=== PATIENT | female | born 1970 | race American Indian/Alaskan Native ===

== ENCOUNTER 2016-12-14 08:43 | Emergency (ER) | payer OTHER ==
[2016-12-14 08:54] VITALS: BP 155/99
--- NOTE | 2016-12-14 10:07 | Emergency Department Report ---
ED Upper Extremity Inj HPI - General Chief Complaint: Extremity Injury, Upper Stated Complaint: L SHOULDER PAIN Time Seen by Provider: 12/14/16 09:56 Source: patient Mode of arrival: Ambulatory Limitations: No Limitations - History of Present Illness Initial Comments: 46-year-old female presents with complaint of pain in her left arm and left upper shoulder status post mechanical fall at work this morning approximately 2 hours ago. Patient states she was sitting back in to chair chair slipped out from underneath her and fell onto her left shoulder. Patient complaining of pain in her left shoulder. Denies any loss of consciousness and no lacerations sustained. Patient denies any chest pain or abdominal pain. Patient fully ambulatory without assistance. Patient states that moving her left shoulder is very painful. pain 9/10. Accompanied by coworker. Patient awake alert and oriented 3 appears uncomfortable. MD Complaint: Injury to:: left, shoulder Onset/Timin -: hour(s) Other Extremity Injury: Wrist: Left, Elbow: Left, Shoulder: Left Severity scale (0 -10): 9 Improves With: immobilization Worsens With: movement of extremity Context: fall Associated Symptoms: denies other symptoms - Related Data Previous Rx's Medication Instructions Recorded Last Taken Type Docusate Sodium [Colace] 100 mg PO BID #60 capsule 11/02/14 Unknown Rx HYDROcodone/ACETAMINOPHEN [[place] 1 each PO Q6HR PRN #20 tablet 11/02/14 Unknown Rx 7.5-325 mg TAB] Ibuprofen [Motrin] 600 mg PO Q8H PRN #40 tablet 11/02/14 Unknown Rx Lidocaine Viscous 2% [Xylocaine 20 mg MM BID #50 ml 11/02/14 Unknown Rx Viscous 2%] Starch 51%(Nf) [Anusol] 1 each MS TID #20 supp.rect 11/02/14 Unknown Rx Cyclobenzaprine [Flexeril] 10 mg PO TID PRN #20 tablet 12/14/16 Unknown Rx Naproxen [Naprosyn TAB] 500 mg PO BID PRN #30 tablet 12/14/16 Unknown Rx Allergies Allergy/AdvReac Type Severity Reaction Status Date / Time Penicillins Allergy Hives Verified 08/01/13 11:51 ED Review of Systems ROS: Stated complaint: L SHOULDER PAIN Other details as noted in HPI Constitutional: denies: chills, fever Eyes: denies: eye pain, eye discharge, vision change ENT: denies: ear pain, throat pain Respiratory: denies: cough, shortness of breath, wheezing Cardiovascular: denies: chest pain, palpitations Endocrine: no symptoms reported Gastrointestinal: denies: abdominal pain, nausea, diarrhea Genitourinary: denies: urgency, dysuria, discharge Musculoskeletal: denies: back pain, joint swelling, arthralgia Skin: denies: rash, lesions Neurological: denies: headache, weakness, paresthesias Psychiatric: denies: anxiety, depression Hematological/Lymphatic: denies: easy bleeding, easy bruising ED Past Medical Hx - Past Medical History Hx Hypertension: Yes Hx Headaches / Migraines: Yes Additional medical history: hypothyroid - Social History Smoking Status: Never Smoker Substance Use Type: None - Medications Home Medications: Home Medications Medication Instructions Recorded Confirmed Last Taken Type Docusate Sodium [Colace] 100 mg PO BID #60 capsule 11/02/14 Unknown Rx HYDROcodone/ACETAMINOPHEN [[place] 1 each PO Q6HR PRN #20 tablet 11/02/14 Unknown Rx 7.5-325 mg TAB] Ibuprofen [Motrin] 600 mg PO Q8H PRN #40 tablet 11/02/14 Unknown Rx Lidocaine Viscous 2% [Xylocaine 20 mg MM BID #50 ml 11/02/14 Unknown Rx Viscous 2%] [place] 51%(Nf) [Anusol] 1 each MS TID #20 supp.rect 11/02/14 Unknown Rx Cyclobenzaprine [Flexeril] 10 mg PO TID PRN #20 tablet 12/14/16 Unknown Rx Naproxen [Naprosyn TAB] 500 mg PO BID PRN #30 tablet 12/14/16 Unknown Rx ED Physical Exam - General Limitations: No Limitations General appearance: alert, in no apparent distress - Head Head exam: Present: atraumatic, normocephalic - Eye Eye exam: Present: normal appearance, PERRL, EOMI - ENT ENT exam: Present: mucous membranes moist - Neck Neck exam: Present: normal inspection - Respiratory Respiratory exam: Present: normal lung sounds bilaterally. Absent: respiratory distress - Cardiovascular Cardiovascular Exam: Present: regular rate, normal rhythm. Absent: systolic murmur, diastolic murmur, rubs, gallop - GI/Abdominal GI/Abdominal exam: Present: soft, normal bowel sounds - Extremities Exam Extremities exam: Present: normal inspection - Expanded Upper Extremity Exam Left Shoulder Exam: Present: normal inspection, tenderness (tenderness left anterior shoulder joint on palpation humeral head no ecchymosis) Upper Arm exam: Present: normal inspection, full ROM Elbow exam: Present: normal inspection, full ROM Forearm Wrist exam: Present: normal inspection, full ROM Hand Wrist exam: Present: normal inspection, full ROM, other (patient has no snuffbox tenderness on exam) Neuro motor exam: Present: wrist extension intact, thumb opposition intact, thumb IP flexion intact, thumb adduction intact Neurosensory exam: Present: radial nerve intact, ulnar nerve intact, median nerve intact Vascular: Present: normal capillary refill (distal pulses radial and capillary refill fully intact all fingers with sensation intact distal extremity) - Back Exam Back exam: Present: normal inspection - Neurological Exam Neurological exam: Present: alert, oriented X3 - Psychiatric Psychiatric exam: Present: normal affect, normal mood - Skin Skin exam: Present: warm, dry, intact, normal color. Absent: rash ED Course Vital Signs 12/14/16 08:49 Temperature 98.2 F Pulse Rate 83 Respiratory 20 Rate Blood Pressure 155/99 O2 Sat by Pulse 98 Oximetry ED Medical Decision Making - Medical Decision Making A/P: Musculoskeletal pain, mechanical fall, left shoulder strain 1-naproxen 500 mg when necessary for pain, Flexeril when necessary for pain 2-xrays show no fractures left upper extremity from shoulder to wrist. Place patient in wrist splint for comfort side, no snuffbox tenderness on exam no neurovascular compromise left upper extremity on clinical exam. We'll give patient shoulder sling but I advised her to not use it beyond 3 days and 7 begin to move his shoulder as soon as possible to prevent any frozen shoulder syndrome 3-RICE therapy 4-will refer patient to orthopedics for follow-up if she experiences persistent pain in her left shoulder beyond a few days Critical care attestation.: If time is entered above; I have spent that time in minutes in the direct care of this critically ill patient, excluding procedure time. ED Disposition Clinical Impression: Musculoskeletal pain of extremity Fall Qualifiers: Encounter type: initial encounter Qualified Code(s): W19.XXXA - Unspecified fall, initial encounter Left shoulder strain Qualifiers: Encounter type: initial encounter Qualified Code(s): S46.912A - Strain of unspecified muscle, fascia and tendon at shoulder and upper arm level, left arm , initial encounter Disposition: DISCHARGED TO HOME OR SELFCARE Is pt being admited?: No Does the pt Need Aspirin: No Condition: Stable Instructions: Musculoskeletal Pain (ED), Shoulder Sprain (ED), RICE Therapy (ED ) Prescriptions: Cyclobenzaprine [Flexeril] 10 mg PO TID PRN #20 tablet PRN Reason: Muscle Spasm Naproxen [Naprosyn TAB] 500 mg PO BID PRN #30 tablet PRN Reason: Pain Referrals: PRIMARY CARE, [Primary Care Provider] - 3-5 Days GARY MCCRAY MD [Staff Physician] - 3-5 Days CARMEN COLE MD [Staff Physician] - 3-5 Days Forms: Work/School Release Form(ED), Accompanied Note Time of Disposition: 11:22
[2016-12-14] MEDS ORDERED: NORCO 5/325 PO ONE (10:08)
--- NOTE | 2016-12-14 11:13 | XRay Report ---
LEFT SHOULDER: History: Pain after fall. Routine views demonstrate normal bony and soft tissue structures with normal joint alignment of the shoulder. IMPRESSION: Normal study.
--- NOTE | 2016-12-14 11:13 | XRay Report ---
LEFT HUMERUS: History: Pain after fall. AP and lateral views of the humerus demonstrate normal mineralization and contours for this patient's age. No destructive changes are noted and the adjacent soft tissues are normal. IMPRESSION: Normal left humerus.
--- NOTE | 2016-12-14 11:14 | XRay Report ---
LEFT ELBOW, 3 views: History: Pain after fall The bony architecture is intact without evidence of fracture or dislocation. No significant soft tissue abnormality is seen. IMPRESSION: Normal left elbow.
--- NOTE | 2016-12-14 11:14 | XRay Report ---
LEFT WRIST, 4 views: HISTORY: Pain after fall. Routine views demonstrate the carpal bones to be well mineralized with well preserved bony mineralization and interosseous joint spaces. The carpal and adjacent articular bones have normal contours. Mild negative ulnar variance is noted. The surrounding soft tissues are unremarkable. IMPRESSION: No evidence for acute injury to the left wrist. Negative ulnar variance.
== END 2016-12-14 11:38 | disposition home or self-care (01) ==
LOC: ED 08:43
DX: S46.912A Strain of unspecified muscle, fascia and tendon at shoulder and upper arm level, left arm, initial encounter (principal); M79.1 Myalgia; I10 Essential (primary) hypertension; Z88.0 Allergy status to penicillin; W19.XXXA Unspecified fall, initial encounter; Y93.89 Activity, other specified; Y99.9 Unspecified external cause status; Y92.89 Other specified places as the place of occurrence of the external cause